=== PATIENT | male | born 1965 | race Two or more races ===

== ENCOUNTER → 2017-12-25 | Outpatient (CLI) | payer OTHER ==
[2017-12-25 13:21] LABS: Anion Gap 7 mmol/L; Blood Urea Nitrogen 13 mg/dL (9-20); Calcium 9.5 mg/dL (8.4-10.2); Carbon Dioxide 29 mmol/L (22-30); Chloride 102 mmol/L (98-107); Glucose 117 mg/dL (74-99); Potassium 4.3 mmol/L (3.5-5.1); Sodium 138 mmol/L (137-145)
== END | disposition home or self-care (01) ==
LOC: LABWHC1 12:02
PROVIDERS: ATTEND Internal Medicine
DX: K74.69 Other cirrhosis of liver (principal); B19.20 Unspecified viral hepatitis C without hepatic coma
CPT/HCPCS: 36415; 80048

== ENCOUNTER → 2020-01-07 | Outpatient (CLI) | payer MEDICARE, OTHER ==
--- NOTE | 2020-01-07 11:46 | US ---
EXAMINATION TYPE: US abdomen complete DATE OF EXAM: 01/07/2020 COMPARISON: NONE CLINICAL HISTORY: 54-year-old male R10.9 abd pain, M79.669 pain in leg. Patient states that he was diagnosed with Hep C and took Interferon. Also stage 4 cirrhosis. TECHNIQUE: Multiple sonographic images of the abdomen are obtained. FINDINGS: EXAM MEASUREMENTS: Liver Length: 12.3 cm Gallbladder Wall: 0.2 cm CBD: 0.4 cm Spleen: 15.4 cm Right Kidney: 9.8 x 4.2 x 4.6 cm Left Kidney: 10.8 x 3.8 x 4.6 cm Pancreas: Obscured by bowel gas Liver: Diffuse coarsened appearance. No focal lesion. Gallbladder: No stones seen Evidence for sonographic Delacruz's sign: no CBD: wnl Spleen: enlarged Kidneys: No hydronephrosis. Upper IVC: wnl Abd Aorta: proximal portion obscure by bowel gas IMPRESSION: 1. Coarsened appearance to the liver suggests underlying nonspecific hepatocellular disease. No focal lesion is seen. 2. No gallstones or biliary ductal dilatation. 3. Splenomegaly at 15.4 cm.
--- NOTE | 2020-01-13 12:17 | P.ARTDOP ---
Arterial Doppler LOWER EXTREMITY ARTERIAL DOPPLER: DATE OF SERVICE: 01/07/2020 Reason for study: Pain with walking, numbness and tingling in feet.. Doppler waveforms: Multiphasic at the left femoral and popliteal and atypical below. Atypical throughout on the right.. Pulse volume recording: []. Pressure gradients: Above the low thigh and lesser so below the knee.. Ankle-brachial indices: 0.51 on the right and 0.42 on the left. Toe brachial indices: 0.31 on the right, 0.38 on the left Impression: At least moderate bilateral fem-pop disease. Suspect right iliac component..
== END | disposition home or self-care (01) ==
LOC: RADUSWWP 09:02
PROVIDERS: ATTEND Internal Medicine
DX: R16.1 Splenomegaly, not elsewhere classified (principal); M79.662 Pain in left lower leg; M79.661 Pain in right lower leg
CPT/HCPCS: 76700; 93923